=== PATIENT | male | born 1990 | race Two or more races ===

== ENCOUNTER 2016-05-26 19:10 | Emergency (ER) | payer OTHER ==
--- NOTE | 2016-05-26 19:34 | ER Document Report ---
ED Medical Screen (RME) - General Stated Complaint: STD EXPOSURE Time seen by provider: 19:32 Mode of Arrival: Ambulatory Information source: Patient Notes: 25-year-old male presents to ED for burning with urination pain in the testicle area bilaterally. Denies ever having any kind of STD in the past I have greeted and performed a rapid initial assessment of this patient. A comprehensive ED assessment and evaluation of the patient, analysis of test results and completion of medical decision making process will be conducted by an additional ED providers. TRAVEL OUTSIDE OF THE [place] IN LAST 30 DAYS: No - Related Data Allergies/Adverse Reactions: No Known Allergies Allergy (Verified 05/26/16 19:32)
[2016-05-26 19:35] VITALS: BP 128/82
[2016-05-26] MEDS ORDERED: AZITHROMYCIN 250 MG TABLET PO ONE (20:54)
[2016-05-26] MEDS ORDERED: CEFTRIAXONE INJ 250 MG VIAL IM ONE (20:54)
[2016-05-26] MEDS ORDERED: LIDOCAINE 1% INJ-PF (10 MG/ML) 30 ML SDV INJ ONE (20:54)
--- NOTE | 2016-05-26 21:00 | ER Document Report ---
ED GI/ - General Chief Complaint: STD Exposure Stated Complaint: STD EXPOSURE Mode of Arrival: Ambulatory Information source: Patient Notes: Patient is a 25-year-old male who presents to the ER today for possible STD exposure. Patient states that he had unprotected sex with a female 1-2 weeks ago and he does not know if she had an STD or not, however he has had some burning with urination over the past week. He denies any abnormal discharge, rash, itching, fever, chills, abdominal pain. TRAVEL OUTSIDE OF THE [place] IN LAST 30 DAYS: No - Related Data Allergies/Adverse Reactions: No Known Allergies Allergy (Verified 05/26/16 19:32) Past Medical History - General Information source: Patient - Social History Smoking Status: Never Smoker Chew tobacco use (# tins/day): No Frequency of alcohol use: Occasional Drug Abuse: None Family History: Reviewed & Not Pertinent Patient has suicidal ideation: No Patient has homicidal ideation: No Renal/ Medical History: Denies: Hx Peritoneal Dialysis Review of Systems - Review of Systems Constitutional: No symptoms reported EENT: No symptoms reported Cardiovascular: No symptoms reported Respiratory: No symptoms reported Gastrointestinal: No symptoms reported Genitourinary: No symptoms reported Male Genitourinary: See HPI Musculoskeletal: No symptoms reported Skin: No symptoms reported Hematologic/Lymphatic: No symptoms reported Neurological/Psychological: No symptoms reported Physical Exam - Vital signs Vitals: Temp Pulse Resp BP Pulse Ox 98.1 F 62 18 128/82 H 99 05/26/16 19:28 05/26/16 19:28 05/26/16 19:28 05/26/16 19:28 05/26/16 19:28 - Notes Notes: PHYSICAL EXAMINATION: GENERAL: Well-appearing and in no acute distress. HEAD: Atraumatic, normocephalic. EYES: Pupils equal round and reactive to light, extraocular movements intact, sclera anicteric, conjunctiva are normal. NECK: Normal range of motion, supple without lymphadenopathy LUNGS: CTAB and equal. No wheezes rales or rhonchi. HEART: Regular rate and rhythm without murmurs ABDOMEN: Soft, no tenderness. No guarding, no rebound BACK: no vertebral tenderness, normal ROM GI/: no CVA tenderness genital exam: pt refused EXTREMITIES: Normal range of motion, no pitting edema. No cyanosis. NEUROLOGICAL: Cranial nerves grossly intact. Normal sensory/motor exams. PSYCH: Normal mood, normal affect. SKIN: Warm, Dry, normal turgor, no rashes or lesions noted Course - Re-evaluation Re-evalutation: 05/26/16 21:02 Gonorrhea and Chlamydia urine testing was sent to the lab, pending, however patient refuses genital exam or waiting on these tests come back, he just wants to be treated for gonorrhea and chlamydia and leave. He has asked me to call if he has any positive results which I agree to at this time. - Vital Signs Vital signs: Temp Pulse Resp BP Pulse Ox 98.1 F 62 18 128/82 H 99 05/26/16 19:28 05/26/16 19:28 05/26/16 19:28 05/26/16 19:28 05/26/16 19:28 Discharge - Discharge Clinical Impression: STD exposure Condition: Stable Disposition: HOME, SELF-CARE Additional Instructions: Return immediately for any new or worsening symptoms. Follow up with primary care provider, call tomorrow to make followup appointment.
[2016-05-26 21:05] LABS: APPEARANCE,URINE CLEAR; BILIRUBIN,URINE NEGATIVE (NEGATIVE); GLUCOSE, URINE NEGATIVE (NEGATIVE); KETONES,URINE NEGATIVE (NEGATIVE); LEUKOCYTE ESTERASE,URINE NEGATIVE (NEGATIVE); NITRITE,URINE NEGATIVE (NEGATIVE); PROTEIN,URINE NEGATIVE (NEGATIVE); URINE SPECIFIC GRAVITY 1.026
[2016-05-26 22:29] LABS: CHLAM PCR NOT DETECTED (NOT DETECT)
== END 2016-05-26 21:30 | disposition home or self-care (01) ==
LOC: ER 19:10
DX: Z20.2 Contact with and (suspected) exposure to infections with a predominantly sexual mode of transmission (principal); R30.0 Dysuria
CPT/HCPCS: 99283; 96372; 81001; 87491; 87591; J3490; J0696